=== PATIENT | male | born 1975 | race Caucasian/White ===

== ENCOUNTER 2025-01-04 08:10 | Day surgery (SDC) | payer BC ==
[~2025-01-04 08:10] MED LIST: propofoL 500 MG/50 ML 50 ML ONE
[2025-01-04] MEDS: Lactated Ringers 1,000 ML IV SCH (08:30)
[2025-01-04] MEDS ORDERED: Propofol 200 MG/20 ML SDV ONE (09:08)
== END 2025-01-04 10:20 | disposition home or self-care (01) ==
LOC: MW.SDS 08:10
PROVIDERS: ATTEND Surgery
DX: Z12.11 Encounter for screening for malignant neoplasm of colon (principal); D12.0 Benign neoplasm of cecum; D12.6 Benign neoplasm of colon, unspecified; K57.30 Diverticulosis of large intestine without perforation or abscess without bleeding; K64.8 Other hemorrhoids; F41.9 Anxiety disorder, unspecified; F32.A Depression, unspecified; I10 Essential (primary) hypertension; E78.00 Pure hypercholesterolemia, unspecified; Z79.899 Other long term (current) drug therapy; Z80.0 Family history of malignant neoplasm of digestive organs
CPT/HCPCS: 45380; 45385; J2704; J7120; 00811